=== PATIENT | female | born 1980 | race Caucasian/White ===

== ENCOUNTER 2017-11-21 18:51 | Emergency (ER) | payer SELFPAY, OTHER | END 2017-11-21 19:40 | disposition left against medical advice (07) | LOC: E/R 19:40 | DX: Z53.21 Procedure and treatment not carried out due to patient leaving prior to being seen by health care provider (principal) ==

== ENCOUNTER 2019-06-28 19:50 | Emergency (ER) | payer SELFPAY | END 2019-06-28 21:03 | disposition left against medical advice (07) | LOC: E/R 19:50 | DX: Z53.21 Procedure and treatment not carried out due to patient leaving prior to being seen by health care provider (principal) ==